=== PATIENT | female | born 1950 | race Caucasian/White ===

== ENCOUNTER 2022-02-04 11:06 | Inpatient (IN) ==
[2022-02-04 11:50] LABS: Basophils % 0.6 % (0.0-0.8); Hematocrit 43.5 VOL% (35.7-47.0); Hemoglobin 14.6 GM/DL (12.0-16.0); Immature Granulocytes % 0.6 %; Immature Granulocytes Absolute 0.04 #; Lymphocytes % 13.9 % (21.3-54.2); Mean Corpuscular HGB Conc 33.6 GM/DL (32-36); Mean Platelet Volume 11.9 FL (9.6-12.0); Monocytes # 0.5 10*3/uL (0.11-0.8); Monocytes % 6.5 % (1.7-12.7); Neutrophils % 78.4 % (38.7-73.9); Platelet Count 279 T/CUMM (130-400); Red Blood Count 4.78 MC/CUMM (3.8-5.5); Red Cell Distribution Width 14.5 % (9.3-17.3); White Blood Count 7.3 T/CUMM (4-12)
[2022-02-04 11:57] LABS: INR 1.1; PT Patient Result 11.8 SECS (10.1-12.1)
[2022-02-04 12:12] LABS: Albumin 3.1 G/DL (3.4-5.0); Calcium 9.3 MG/DL (8.5-10.1); Osmolality,Calculated 256.1 MOS/KG (273-304); Potassium 4.6 MMOL/L (3.5-5.1); Total Protein 6.7 G/DL (6.4-8.2)
[2022-02-04 12:13] LABS: Lymphocytes 14 % (20-55); Total Cells Counted 100
[2022-02-04 12:14] LABS: Platelet Estimate Adequate
[2022-02-04] MEDS ORDERED: FUROSEMIDE 40 MG/4 ML VIAL IV STA (12:32)
[2022-02-04] MEDS ORDERED: GLUCAGON 1 MG VIAL IM PRN (14:50)
[2022-02-04] MEDS ORDERED: ACETAMINOPHEN 325 MG TABLET PO PRN (14:50)
[2022-02-04] MEDS ORDERED: DEXTROSE 10% 250 ML BAG IV PRN (14:50)
[2022-02-04] MEDS ORDERED: NICOTINE 14 MG/24 HR PATCH TRANSDERM PRN (15:02)
[2022-02-04 15:45] LABS: Thyroid Stimulating Hormone 4.1 uIU/ml (0.358-3.74)
[2022-02-04] MEDS ORDERED: PNEUMOCOCCAL VACCINE (13 VALENT) 0.5 ML SYRINGE IM ONE (16:25)
[2022-02-04] MEDS: ENOXAPARIN 40 MG/0.4 ML SYRINGE SUBCUT SCH (16:36)
[2022-02-05 06:15] LABS: Basophils % 0.6 % (0.0-0.8); Eosinophils % 0.2 % (0.00-10.9); Hematocrit 40.2 VOL% (35.7-47.0); Hemoglobin 13.5 GM/DL (12.0-16.0); Immature Granulocytes % 0.5 %; Immature Granulocytes Absolute 0.03 #; Lymphocytes % 16.2 % (21.3-54.2); Mean Corpuscular HGB Conc 33.6 GM/DL (32-36); Mean Corpuscular Volume 92.6 FL (87-102); Mean Platelet Volume 11.8 FL (9.6-12.0); Monocytes # 0.6 10*3/uL (0.11-0.8); Monocytes % 9.7 % (1.7-12.7); Neutrophils % 72.8 % (38.7-73.9); Platelet Count 215 T/CUMM (130-400); Red Blood Count 4.34 MC/CUMM (3.8-5.5); Red Cell Distribution Width 14.6 % (9.3-17.3); White Blood Count 6.2 T/CUMM (4-12)
[2022-02-05 06:33] LABS: Calcium 8.7 MG/DL (8.5-10.1); Potassium 3.7 MMOL/L (3.5-5.1); Risk Ratio 3.43; VLDL Cholesterol 18.2 MG/DL
[2022-02-05] MEDS: carvediloL 12.5 MG TABLET PO SCH ×2 (08:31→21:23)
[2022-02-05] MEDS: FUROSEMIDE 40 MG/4 ML VIAL IV SCH ×2 (08:31→16:51)
[2022-02-05] MEDS: ASPIRIN EC 81 MG TABLET PO SCH (08:31)
[2022-02-05] MEDS: LOSARTAN 25 MG TABLET PO SCH ×2 (08:31→21:23)
[2022-02-05] MEDS: PANTOPRAZOLE 40 MG TABLET PO SCH (08:31)
[2022-02-05] MEDS ORDERED: LOSARTAN 25 MG TABLET PO SCH (09:00)
[2022-02-05] MEDS: ENOXAPARIN 40 MG/0.4 ML SYRINGE SUBCUT SCH (16:50)
[2022-02-05] MEDS: ATORVASTATIN 20 MG TABLET PO SCH (21:23)
[2022-02-06 06:21] LABS: Basophils % 0.5 % (0.0-0.8); Eosinophils % 0.3 % (0.00-10.9); Hemoglobin 13.7 GM/DL (12.0-16.0); Immature Granulocytes % 0.4 %; Immature Granulocytes Absolute 0.03 #; Lymphocytes # 1.3 10*3/uL (1.4-4.0); Lymphocytes % 17.3 % (21.3-54.2); Mean Corpuscular HGB Conc 32.6 GM/DL (32-36); Mean Corpuscular Volume 94.2 FL (87-102); Mean Platelet Volume 12.1 FL (9.6-12.0); Monocytes # 0.7 10*3/uL (0.11-0.8); Monocytes % 9.1 % (1.7-12.7); Neutrophils % 72.4 % (38.7-73.9); Platelet Count 221 T/CUMM (130-400); Red Blood Count 4.46 MC/CUMM (3.8-5.5); Red Cell Distribution Width 14.8 % (9.3-17.3); White Blood Count 7.6 T/CUMM (4-12)
[2022-02-06 06:45] LABS: Calcium 8.7 MG/DL (8.5-10.1); Potassium 3.8 MMOL/L (3.5-5.1)
[2022-02-06] MEDS: FUROSEMIDE 40 MG/4 ML VIAL IV SCH ×2 (08:53→16:05)
[2022-02-06] MEDS: ASPIRIN EC 81 MG TABLET PO SCH (08:53)
[2022-02-06] MEDS: carvediloL 12.5 MG TABLET PO SCH ×2 (08:53→21:10)
[2022-02-06] MEDS: PANTOPRAZOLE 40 MG TABLET PO SCH (08:53)
[2022-02-06] MEDS: LOSARTAN 25 MG TABLET PO SCH (08:53)
[2022-02-06] MEDS ORDERED: MAGNESIUM HYDROXIDE SUSP 30 ML UDCUP PO PRN (09:12)
[2022-02-06] MEDS: ENOXAPARIN 40 MG/0.4 ML SYRINGE SUBCUT SCH (15:58)
[2022-02-06] MEDS ORDERED: FUROSEMIDE 40 MG/4 ML VIAL IM SCH (16:00)
[2022-02-06] MEDS: ATORVASTATIN 20 MG TABLET PO SCH (21:10)
[2022-02-07] MEDS ORDERED: diphenhydrAMINE CAP 50 MG CAPSULE PO ONE (06:00)
[2022-02-07] MEDS ORDERED: DIAZEPAM 5 MG TABLET PO ONE (06:00)
[2022-02-07 06:08] LABS: Basophils % 0.5 % (0.0-0.8); Eosinophils % 0.3 % (0.00-10.9); Hematocrit 39.9 VOL% (35.7-47.0); Immature Granulocytes % 0.3 %; Immature Granulocytes Absolute 0.02 #; Lymphocytes # 1.3 10*3/uL (1.4-4.0); Lymphocytes % 22.5 % (21.3-54.2); Mean Corpuscular HGB Conc 32.6 GM/DL (32-36); Mean Corpuscular Volume 94.3 FL (87-102); Mean Platelet Volume 12.1 FL (9.6-12.0); Monocytes # 0.5 10*3/uL (0.11-0.8); Monocytes % 9.2 % (1.7-12.7); Neutrophils % 67.2 % (38.7-73.9); Platelet Count 202 T/CUMM (130-400); Red Blood Count 4.23 MC/CUMM (3.8-5.5); Red Cell Distribution Width 14.6 % (9.3-17.3); White Blood Count 5.8 T/CUMM (4-12)
[2022-02-07 06:54] LABS: Osmolality,Calculated 278.5 MOS/KG (273-304); Potassium 3.2 MMOL/L (3.5-5.1)
[2022-02-07] MEDS ORDERED: POTASSIUM CHLORIDE RIDER 10 MEQ/100 ML PREMIX IV ONE (08:46)
[2022-02-07] MEDS: carvediloL 12.5 MG TABLET PO SCH ×2 (09:00→21:23)
[2022-02-07] MEDS: PANTOPRAZOLE 40 MG TABLET PO SCH (09:00)
[2022-02-07] MEDS: ASPIRIN EC 81 MG TABLET PO SCH (09:00)
[2022-02-07] MEDS: SPIRONOLACTONE 25 MG TABLET PO SCH (09:01)
[2022-02-07] MEDS: DAPAGLIFLOZIN 5 MG TABLET PO SCH (09:23)
[2022-02-07] MEDS ORDERED: HEPARIN/NACL 0.9% 2 UNITS/ML 2,000 UNIT/1,000 ML BAG IV ONE (09:56)
[2022-02-07] MEDS ORDERED: fentaNYL 100 MCG/2 ML VIAL ONE (10:17)
[2022-02-07] MEDS ORDERED: MIDAZOLAM 2 MG/2 ML VIAL ONE (10:17)
[2022-02-07] MEDS: SODIUM CHLORIDE 0.9% 1,000 ML IV SCH (11:24)
[2022-02-07] MEDS: FUROSEMIDE 40 MG/4 ML VIAL IV SCH (11:24)
[2022-02-07] MEDS: ENOXAPARIN 40 MG/0.4 ML SYRINGE SUBCUT SCH (16:13)
[2022-02-07] MEDS: buPROPion SR 100 MG TABLET PO SCH (21:23)
[2022-02-07] MEDS: ATORVASTATIN 20 MG TABLET PO SCH (21:23)
[2022-02-08] MEDS: SODIUM CHLORIDE 0.9% 1,000 ML IV SCH (04:29)
[2022-02-08 06:16] LABS: Calcium 8.5 MG/DL (8.5-10.1); Osmolality,Calculated 281.4 MOS/KG (273-304); Potassium 3.6 MMOL/L (3.5-5.1)
[2022-02-08] MEDS ORDERED: MAGNESIUM HYDROXIDE SUSP 30 ML UDCUP PO PRN (08:45)
[2022-02-08] MEDS: carvediloL 12.5 MG TABLET PO SCH ×2 (08:46→21:17)
[2022-02-08] MEDS: SACUBITRIL/VALSARTAN 49-51 MG TABLET PO SCH ×2 (08:46→21:17)
[2022-02-08] MEDS: buPROPion SR 100 MG TABLET PO SCH ×2 (08:46→21:17)
[2022-02-08] MEDS: SPIRONOLACTONE 25 MG TABLET PO SCH (08:46)
[2022-02-08] MEDS: ASPIRIN EC 81 MG TABLET PO SCH (08:46)
[2022-02-08] MEDS: DAPAGLIFLOZIN 5 MG TABLET PO SCH (08:47)
[2022-02-08] MEDS: PANTOPRAZOLE 40 MG TABLET PO SCH (08:47)
[2022-02-08] MEDS: NICOTINE 21 MG/24 HR PATCH TRANSDERM SCH (08:47)
[2022-02-08] MEDS ORDERED: FUROSEMIDE 40 MG/4 ML VIAL IV ONE ×2 (09:20→17:00)
[2022-02-08] MEDS: ENOXAPARIN 40 MG/0.4 ML SYRINGE SUBCUT SCH (16:21)
[2022-02-08] MEDS: ATORVASTATIN 20 MG TABLET PO SCH (21:17)
[2022-02-09 05:40] LABS: Basophils % 0.5 % (0.0-0.8); Eosinophils % 0.5 % (0.00-10.9); Hematocrit 41.2 VOL% (35.7-47.0); Hemoglobin 13.7 GM/DL (12.0-16.0); Immature Granulocytes % 0.3 %; Immature Granulocytes Absolute 0.02 #; Lymphocytes # 1.3 10*3/uL (1.4-4.0); Lymphocytes % 21.1 % (21.3-54.2); Mean Corpuscular HGB Conc 33.3 GM/DL (32-36); Mean Corpuscular Volume 93.4 FL (87-102); Mean Platelet Volume 11.7 FL (9.6-12.0); Monocytes # 0.7 10*3/uL (0.11-0.8); Monocytes % 11.7 % (1.7-12.7); Neutrophils % 65.9 % (38.7-73.9); Platelet Count 200 T/CUMM (130-400); Red Blood Count 4.41 MC/CUMM (3.8-5.5); Red Cell Distribution Width 14.6 % (9.3-17.3); White Blood Count 6.2 T/CUMM (4-12)
[2022-02-09 06:02] LABS: Calcium 8.6 MG/DL (8.5-10.1); Potassium 3.2 MMOL/L (3.5-5.1)
[2022-02-09] MEDS ORDERED: POTASSIUM CHLORIDE 20 MEQ TABLET PO ONE (08:07)
[2022-02-09] MEDS: SACUBITRIL/VALSARTAN 49-51 MG TABLET PO SCH (08:20)
[2022-02-09] MEDS: buPROPion SR 100 MG TABLET PO SCH (08:20)
[2022-02-09] MEDS: ASPIRIN EC 81 MG TABLET PO SCH (08:20)
[2022-02-09] MEDS: carvediloL 12.5 MG TABLET PO SCH (08:20)
[2022-02-09] MEDS: PANTOPRAZOLE 40 MG TABLET PO SCH (08:21)
[2022-02-09] MEDS: NICOTINE 21 MG/24 HR PATCH TRANSDERM SCH (08:21)
[2022-02-09] MEDS: SPIRONOLACTONE 25 MG TABLET PO SCH (08:21)
[2022-02-09 08:40] VITALS: BP 118/93
[2022-02-09] MEDS ORDERED: DAPAGLIFLOZIN 10 MG TABLET PO SCH (09:00)
[2022-02-09] MEDS ORDERED: FUROSEMIDE 40 MG TABLET PO SCH (09:00)
[2022-02-09] MEDS ORDERED: PNEUMOCOCCAL VACCINE (13 VALENT) 0.5 ML SYRINGE IM ONE (11:30)
== END 2022-02-09 12:33 | disposition home or self-care (01) | DRG 286 ==
LOC: N.ED 11:06 → SUATTDRO 14:09 → N.EDINP 14:09 → N.TELEN 15:54
PROVIDERS: ADMIT Internal Medicine; ATTEND Family Medicine
PROC: CLCCHCL (ICD-10-PCS; 2022-02-07 09:45)